=== PATIENT | female | born 1980 | race Caucasian/White ===

== ENCOUNTER 2020-09-03 07:01 | Emergency (ER) | payer OTHER, SELFPAY ==
[2020-09-03 07:10] VITALS: BP 144/94; PULSE 112; RESP 14; TEMP 37.1; O2SAT 98
--- NOTE | 2020-09-03 07:45 | DI.RAD_ITS ---
EXAM: XR ANKLE LT COMPLETE CLINICAL HISTORY: s/p twisting inj, r/o fx lat malleolus TECHNIQUE: COMPARISON: CR XR FOOT LT COMPLETE from 09/03/2020 FINDINGS: Three views of the ankle and three views of the foot were obtained. The ankle mortise is well mainta ined. No tibial, fibular, or talar fracture identified. There is a transverse nondisplaced fracture of the base of the 5th metatarsal. No additional fractur e seen involving the foot. IMPRESSION: RADIATION DOSE DELIVERED: Total DLP
--- NOTE | 2020-09-03 07:47 | W.ED.GENAD ---
Discharge Plan Disposition Patient Disposition: HOME Condition: Stable Discharge Details Clinical Impression: Fracture of base of fifth metatarsal bone Primary Care Provider: Ofe Rosario ED Provider: Marjorie Manriquez Home Meds and New Rx's Prescriptions: Continued bupropion HCl 100 MG tablet extended release 12 hr 100 mg PO BID RF: 0 desvenlafaxine succinate [Pristiq] 50 MG tablet extended release 24 hr 50 mg PO DAILY RF: 0 gabapentin 300 MG capsule 900 mg PO HS RF: 0 zolpidem [Ambien] 5 MG tablet 5 mg PO HS PRNRF: 0 Mirena 1 EACH intrauterine device 1 ea IU DIRECTED RF: 0 dextroamphetamine-amphetamine [Adderall] 15 mg tablet 15 mg PO BID RF: 0 Discharge Instructions Instructions: Foot Fracture in Adults (ED) Additional Instructions: You may bear weight on your foot while wearing the walking boot. Try to limit walking and weightbearing as much as possible. Rest, ice, and elevate the affected area as much as possible. Alternate tylenol and motrin as needed and directed for pain. Call the orthopedics office today to schedule a follow-up appointment for reevaluation. Return immediately to the emergency department if you develop any worsening or new concerning symptoms. Referrals: Champ Rodriguez MD [ [facility] STAFF PHYSICIAN] - Discharge Data Discharge Date/Time-TO BE ENTERED AT DEPARTURE: 09/03/20 09:18 Discharge Physician: Marjorie Manriquez Medical Decision Making 39-year-old female presents with left ankle and foot pain status post twisting injury last night. Patient has minimal ecchymosis and moderate edema and tenderness to palpation to left lateral malleolus and left proximal fifth metatarsal. No deformities noted. Neurovascular intact. No open wounds. Will refer for x-rays to rule out fracture. Patient declined a dose of pain medication. X-ray reviewed and notes a nondisplaced fracture at the base of the fifth metatarsal. No additional fractures are seen involving the foot or ankle. Patient requested a dose of ibuprofen. She denies chance of and declined test as she states she has not been sexually active in over a year and has a Mirena. Case discussed with Dr. Rodriguez who recommends walking boot or orthopedic shoe. Patient would prefer a walking boot. Pt requested crutches. Patient placed on orthopedic follow-up list. Patient declined pain medication prescription for home. Instructed on importance of RICE. Usual and customary return precautions given prior to discharge. Medical Records Medical records reviewed: Yes I reviewed the patient's medical records. Imaging Data Radiologic Study: Radiologist's impression: XR FOOT AND ANKLE LT COMPLETE CLINICAL HISTORY: s/p twisting inj, r/o fx lat malleolus TECHNIQUE: COMPARISON: CR XR FOOT LT COMPLETE from 09/03/2020 FINDINGS: Three views of the ankle and three views of the foot were obtained. The ankle mortise is well maintained. No tibial, fibular, or talar fracture identified. There is a transverse nondisplaced fracture of the base of the 5th metatarsal. No additional fracture seen involving the foot. HPI General Mode of arrival: wheelchair. Date/Time Provider Initiated Documentation: 09/03/20 07:46. Limitations to Documentation: no limitations. Information obtained by: patient. HPI Narrative: Patient is a 39-year-old female who presents to the ED with complaint of left ankle and foot pain and swelling status post a twisting injury last night. Patient states she was walking around 11 PM last night when she slipped on a dog toy twisting her left ankle. She states she took ibuprofen last night with some relief. She states she did vomit shortly after taking the ibuprofen she states due to pain and stomach upset from the NSAIDs. She denies any nausea at present. She has not taken any medication for pain this morning. She denies any other injuries. Related Data Home Medications Medication Instructions Recorded Confirmed bupropion HCl 100 mg PO BID 09/08/14 09/11/14 desvenlafaxine succinate [Pristiq] 50 mg PO DAILY 09/08/14 09/03/20 gabapentin 900 mg PO HS 09/08/14 09/11/14 Mirena 1 ea IU DIRECTED 09/11/14 09/03/20 zolpidem [Ambien] 5 mg PO HS PRN 09/11/14 09/03/20 dextroamphetamine-amphetamine 15 mg PO BID 09/03/20 09/03/20 [Adderall] Allergies Allergy/AdvReac Type Severity Reaction Status Date / Time No Known Allergies Allergy Unverified 09/03/20 07:39 General Stated Complaint: Orthopedic SUNNY: 4 Review of Systems All systems reviewed & are unremarkable except as noted in HPI and below PFSH Social History Smoking/Tobacco Use Status: Never Smoking risk assessment performed?: Yes Alcohol Intake: current Alcohol Intake frequency: holidays/special occasions only Drug use: Never Do you feel safe at home: Yes Do you feel safe in your relationship?: Yes Exam Const General: cooperative, healthy appearing and no acute distress HENKS Head: normal to inspection Mouth: oral mucosae normal Eyes General: appearance normal, both eyes and all related structures Neck Neck: normal visual inspection Resp Effort & Inspection: normal respiratory effort and able to speak in complete sentences Cardio Rate: regular rate Skin General skin exam: no rashes or lesions noted Neuro General: patient alert, patient awake and patient oriented x3 Motor: muscle tone normal throughout Extrem Ankle/foot/toe images: 1. Minimal ecchymosis, moderate edema and tenderness to palpation to left anterior and inferior lateral malleolus and left proximal fifth metatarsal. Other: There is no crepitus to the left ankle or foot. Heel normal to inspection and palpation. Motor/sensory of ankle and foot grossly intact. Left DP/PT pulses intact. Psych Appearance: grossly normal Affect: normal affect Course Vital Signs Vital signs: Vital Signs Temperature 98.8 F 09/03/20 07:10 Pulse 112 H 09/03/20 07:10 Respiratory Rate 14 09/03/20 07:10 Blood Pressure 144/94 H 09/03/20 07:10 Pulse Oximetry 98 09/03/20 07:10 Temperature 98.8 F 09/03/20 07:10 Temperature Source Oral 09/03/20 07:10 Pulse 112 H 09/03/20 07:10 Respiratory Rate 14 09/03/20 07:10 Respiratory Effort Non-Labored 09/03/20 07:37 Blood Pressure 144/94 H 09/03/20 07:10 Blood Pressure Position Sitting 09/03/20 07:10 Pulse Oximetry 98 09/03/20 07:10 Oxygen Delivery Method Room Air 09/03/20 07:10 Oxygen Flow Rate 0 09/03/20 07:10 Pain Level 7 09/03/20 07:46
[2020-09-03] MEDS: Ibuprofen 600 MG TAB PO (09:00)
== END 2020-09-03 09:18 | disposition home or self-care (01) ==
PROVIDERS: Emergency Provider Physician Assistant; PCP General Practice
DX: S92.355A Nondisplaced fracture of fifth metatarsal bone, left foot, initial encounter for closed fracture (principal); W22.8XXA Striking against or struck by other objects, initial encounter
CPT/HCPCS: 29515; 99284; 73610; 73630; 99283

== ENCOUNTER 2020-10-04 10:20 | Outpatient (CLI) | payer OTHER, SELFPAY ==
--- NOTE | 2020-10-04 09:15 | DI.RAD_ITS ---
EXAM: XR FOOT LT COMPLETE CLINICAL HISTORY: f/u fracture. TECHNIQUE: 2D digital imaging was performed. COMPARISON: X-rays 09/03/2020 FINDINGS: The nondisplaced fracture at the base of the 5th metatarsal is still evident. No displacement. No additional fractures evident. Lisfranc joint appears unremarkable. IMPRESSION: DATA REPOSITORY: RADIATION DOSE DELIVERED:
== END 2020-10-04 10:21 | disposition home or self-care (01) ==
LOC: DIORS 10:20
PROVIDERS: PCP Family Medicine Adult Medicine; Visit Provider Physician Assistant
DX: S92.355D Nondisplaced fracture of fifth metatarsal bone, left foot, subsequent encounter for fracture with routine healing (principal)
CPT/HCPCS: 73630

== ENCOUNTER 2022-08-08 14:07 | Emergency (ER) | payer OTHER, SELFPAY ==
[2022-08-08 14:13] VITALS: BP 145/105; PULSE 120; RESP 18; TEMP 36.8; O2SAT 98
[2022-08-08 14:35] VITALS: RESP 18
--- NOTE | 2022-08-08 15:07 | ED.GENADUL_ITS ---
Discharge Plan Disposition Patient Disposition: Home Discharge Details Clinical Impression: Viral URI with cough Primary Care Provider: Korina,Local ED Provider: Polo Sahu Home Meds and New Rx's Prescriptions: New benzonatate 100 mg capsule 100 mg PO BID-TID PRNQty: 10 0RF cetirizine 10 mg tablet 10 mg PO DAILY PRNQty: 10 0RF Continued clonidine HCl 0.1 mg tablet 0.1 mg PO QHS Rx Instructions: does not take esomeprazole magnesium [Nexium] 40 mg capsule,delayed release(DR/EC) 40 mg PO DAILY desvenlafaxine succinate [Pristiq] 50 mg tablet extended release 24 hr 75 mg PO DAILY Rx Instructions: does not take Mirena 1 EACH intrauterine device 1 ea IU DIRECTED dextroamphetamine-amphetamine [Adderall] 15 mg tablet 10 mg PO DAILY Patient Comments: Take 1 tablet by mouth twice a day fluoxetine 40 mg capsule 40 mg PO DAILY amoxicillin-pot clavulanate 875-125 mg tablet 1 tab PO BID Patient Comments: TAKE ONE TABLET BY MOUTH TWICE A DAY FOR 5 TO 7 DAYS Discharge Instructions Instructions: Upper Respiratory Infection (ED), Acute Cough (ED) Additional Instructions: Please read all of the information that accompanies these instructions. You were seen in the emergency department for your cough and cold symptoms. Your x- ray showed no sign of a pneumonia. Please schedule an appointment with your primary care provider later this week. Please return to the emergency department if if you develop worsening shortness of breath cannot eat or drink or if you have any other concerns. For your pain please take medications as follows: 1. Take acetaminophen (Tylenol), 1,000 mg (two 500 mg tabs) every 6 hours 2. Take ibuprofen (Advil), 400 mg every 6 hours. Medications for a cough has been sent into your pharmacy. Discharge Data Discharge Date/Time-TO BE ENTERED AT DEPARTURE: 08/08/22 17:49 Medical Decision Making This is an overall well-appearing tachycardic but not hypoxic nor hypotensive 41-year-old female with elevated BMI and upper respiratory symptoms and bilateral coarse breath sounds concerning for bronchitis versus viral pneumonia. On my initial assessment her heart rate was 101, down from her heart rate at triage which was 120. Given her overall well appearance I am not concerned for sepsis so I did not obtain a lactate treat with broad-spectrum antibiotics nor order blood cultures. We will assess electrolytes and CBC and provide 1 L of IV fluids along with acetaminophen for symptomatic relief. We will swab for flu, COVID, and RSV. We will also obtain a two-view chest x-ray to assess for any obvious bacterial infiltrate. Given the patient's bilateral abnormal lung sounds I am most suspicious for a viral etiology to her symptoms. She is not an alcoholic to suggest increased risk for aspiration pneumonia. She is not immunocompromised and has no history of diabetes to suggest opportunistic infection. No recent travel to suggest zoonotic infection. No history of HIV to suggest PCP pneumonia. Will reassess following labs and fluids and swab. Given no significant wheezing or history of reactive airway disease will defer steroids at this point time. 5:30 PM Patient's labs returned and they were all quite reassuring. She had no anemia or thrombocytopenia nor leukocytosis. She had no acute electrolyte abnormalities and her chest x-ray lacked any infiltrates. Her flu, RSV, and COVID swabs were negative. I have prescribed her cetirizine and Tessalon Perles as she reported that the Tessalon Perles had helped with her cough. Her tachycardia resolved and she remained nonhypoxic on room air and as result I feel that she warrants an empiric trial of expectant outpatient management. I asked health community outreach advocate Deanna to have her seen later this week by her primary care provider for reassessment. I advised her to return to the emergency department if she develop any difficulty breathing or if she had any concerns. HPI General Date/Time Provider Initiated Documentation: 08/08/22 14:48 . HPI Narrative: This is a 41-year-old female on outpatient venlafaxine and dextroamphetamine now in the emergency department in the setting of a cough. Patient reports that she became sick approximately 12 days ago. She was seen at urgent care 4 days ago and received a prescription for amoxicillin clavulanic acid in the setting of a sinus infection. She says that for the past 2 days she has been wheezing. She has 2 days left of her outpatient antibiotics. She has been taking scheduled ibuprofen and has felt that her cold has gone down into her chest. She has also noted new increased green sputum production. This is worse in the morning. She has no history of asthma nor COPD. She has a sick contact in her son who has a sinus infection. She has had some abdominal cramping secondary to her outpatient antibiotics but she has not been nauseous nor vomiting. She denies recent tobacco alcohol and illicits. 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 Related Data Home Medications Medication Instructions Recorded Confirmed levonorgestrel 21 mcg/24 hours (8 1 ea IU DIRECTED 09/11/14 08/08/22 yrs) 52 mg intrauterine device (Mirena) dextroamphetamine-amphetamine 15 10 mg PO DAILY 09/03/20 08/08/22 mg tablet (Adderall) clonidine HCl 0.1 mg tablet 0.1 mg PO QHS 10/04/20 10/04/20 desvenlafaxine succinate 50 mg 75 mg PO DAILY 10/04/20 10/04/20 tablet,extended release 24 hr (Pristiq) esomeprazole magnesium 40 mg 40 mg PO DAILY 10/04/20 08/08/22 capsule,delayed release (Nexium) amoxicillin 875 mg-potassium 1 tab PO BID 08/08/22 08/08/22 clavulanate 125 mg tablet benzonatate 100 mg capsule 100 mg PO BID-TID PRN #10 caps 08/08/22 cetirizine 10 mg tablet 10 mg PO DAILY PRN #10 tabs 08/08/22 fluoxetine 40 mg capsule 40 mg PO DAILY 08/08/22 08/08/22 Previous Rx's Medication Instructions Recorded benzonatate 100 mg capsule 100 mg PO BID-TID PRN #10 caps 08/08/22 cetirizine 10 mg tablet 10 mg PO DAILY PRN #10 tabs 08/08/22 Allergies Allergy/AdvReac Type Severity Reaction Status Date / Time No Known Allergies Allergy Unverified 08/08/22 14:33 General Stated Complaint: GenMedical SUNNY: 3 PFSH All Active Problems (Updated 08/08/22 @ 17:32 by Polo Sahu MD) Viral URI with cough (Acute) Left ankle sprain (Acute) Fracture of base of fifth metatarsal bone (Acute) Social History Smoking/Tobacco Use Status: Never Smoking risk assessment performed?: Yes Alcohol Intake: current Alcohol Intake frequency: holidays/special occasions only Drug use: Never Do you feel safe at home: Yes Do you feel safe in your relationship?: Yes Exam Narrative Exam Narrative: General: Well-appearing in no acute distress speaking in complete sentences. Head: Normocephalic, atraumatic Ear, nose, mouth, throat: Grossly normal inspection. Normal voice, handling secretions normally. Neck: Trachea midline. Cardiovascular: Well-perfused distal extremities. Respiratory: Nonlabored respiration. Coarse transmitted upper airway breath sounds bilaterally. Gastrointestinal: Nondistended abdomen. Musculoskeletal: No edema. Moving all 4 extremities spontaneously. Skin: Normal for age and race, grossly normal temperature and turgor. No acute rash. Neurologic: Alert and appropriate, no apparent acute deficits. Psychiatric: Mood and manner are appropriate. Grooming and personal hygiene are appropriate. Course Vital Signs Vital signs: Vital Signs Temperature 36.8 C 08/08/22 14:13 Pulse 120 H 08/08/22 14:13 Respiratory Rate 18 08/08/22 14:13 Blood Pressure 145/105 H 08/08/22 14:13 Pulse Oximetry 98 08/08/22 14:13 Temperature 36.8 C 08/08/22 14:13 Temperature Source Oral 08/08/22 14:13 Pulse 120 H 08/08/22 14:13 Respiratory Rate 18 08/08/22 14:35 Respiratory Effort Short of Breath 08/08/22 14:35 Respiratory Depth Normal 08/08/22 14:35 Respiratory Pattern Normal 08/08/22 14:35 Blood Pressure 145/105 H 08/08/22 14:13 Blood Pressure Position Sitting 08/08/22 14:13 Pulse Oximetry 98 08/08/22 14:13 Oxygen Delivery Method Room Air 08/08/22 14:13 Oxygen Flow Rate 0 08/08/22 14:13 Pain Level 0 08/08/22 14:13
--- NOTE | 2022-08-08 15:15 | DI.RAD_ITS ---
Exam(s) XR CHEST 2V PA LATERAL EXAM: XR CHEST 2V PA LATERAL CLINICAL HISTORY: Cough. TECHNIQUE: 2D digital imaging was performed. COMPARISON: No exams were available for comparison FINDINGS: 2 views: Heart size is normal. The mediastinum is not widened. Lungs are clear. No infiltrates nor pleural effusions. IMPRESSION: No acute pulmonary findings. DATA REPOSITORY: RADIATION DOSE DELIVERED:
[2022-08-08] MEDS: Normal Saline 1,000 ML 1000 ML IV (15:40)
[2022-08-08] MEDS: Benzonatate 100 MG CAP PO (15:40)
[2022-08-08 15:47] LABS: HCT 46.1 % (36.0-46.0); HGB 15.2 g/dL (11.2-15.7); MCH 29.9 pg (27.0-33.0); MCV 91 fL (80-95); MPV 9.3 fL (8.0-11.0); Platelet Count 272 10^3/uL (130-400); RBC 5.09 10^6/uL (3.93-5.22); RDW 12.6 % (11.7-14.6); RDW-SD 41.9 fL; WBC 5.53 10^3/uL (4.4-10.8)
[2022-08-08 16:07] LABS: Anion Gap 8.7 mmol/L (3-11); BUN 13 mg/dL (7-18); CO2 26.3 mmol/L (21.0-32.0); CREATININE 0.9 mg/dL (0.55-1.02); Calcium 9.7 mg/dL (8.5-10.1); Chloride 104 mmol/L (98-107); Estimated GFR 81.86 (mL/min/1.73m2); Glucose 86 mg/dL (74-106); Potassium 3.8 mmol/L (3.5-5.1); Sodium 139 mmol/L (136-145)
[2022-08-08 16:08] LABS: HCG Qual (Serum) Negative
[2022-08-08 16:27] LABS: COVID-19 PCR Negative (Negative); Influenza A PCR Negative (Negative); Influenza B PCR Negative (Negative); RSV PCR Negative (Negative)
[2022-08-08 16:29] LABS: Source Nasopharynx
[2022-08-08 16:58] VITALS: BP 137/82; PULSE 81; RESP 16; O2SAT 97
[2022-08-08] MEDS: Acetaminophen 500 MG TAB 1000 MG PO (17:10)
[2022-08-08] MEDS: Ibuprofen 600 MG TAB PO (17:10)
[2022-08-08 17:41] VITALS: BP 123/86; PULSE 70; RESP 18; O2SAT 97
--- NOTE | 2022-08-08 18:08 | NUR.NOTE ---
Referral made per Dr Sahu for a follow up with PCP for bilateral URI in next 3 days. Put the referral in the care manger's box for follow up assistance. Nursing Note:
== END 2022-08-08 17:49 | disposition home or self-care (01) ==
PROVIDERS: Emergency Provider Emergency Medicine
DX: J06.9 Acute upper respiratory infection, unspecified (principal); Z20.822 Contact with and (suspected) exposure to COVID-19
CPT/HCPCS: 80048; 85027; 87637; 96360; 99284; 71046; 84703

== ENCOUNTER 2024-09-03 15:29 | Outpatient (CLI) | payer OTHER, SELFPAY ==
--- NOTE | 2024-09-03 | DI.RAD_ITS ---
Exam(s) XR CHEST 2V PA LATERAL EXAM: XR CHEST 2V PA LATERAL CLINICAL HISTORY: Cough, R05.9 TECHNIQUE: 2D digital imaging was performed. Two views. COMPARISON: CR XR CHEST 2V PA LATERAL from 08/08/2022 FINDINGS: HEART: Normal size. Aorta: Not dilated. PULMONARY VASCULATURE: Normal. MEDIASTINUM: Unremarkable. LUNGS: Clear. PLEURAL SPACE: No pleural effusion or pneumothorax. BONE:Unremarkable for age. SOFT TISSUES: Unremarkable. IMPRESSION: No acute abnormality. DATA REPOSITORY: RADIATION DOSE DELIVERED:
== END 2024-09-03 15:49 ==
LOC: DI 15:29
PROVIDERS: Visit Provider Physician Assistant Medical
DX: R05.9 Cough, unspecified (principal)
CPT/HCPCS: 71046